=== PATIENT | male | born 1995 | race Caucasian/White ===

== ENCOUNTER 2016-05-06 15:45 | Emergency (ER) | payer OTHER ==
[2016-05-06 16:02] VITALS: BP 120/94; PULSE 76; RESP 17; TEMP 97.9; O2SAT 95
[2016-05-06] MEDS ORDERED: HYDROCOD/APAP 5/325 PREPACK#6 BTL TAKEHOME ONE (17:20)
--- NOTE | 2016-05-06 17:21 | EDPHY ---
H & P Time Seen by Provider: 05/06/16 16:31 HPI/ROS: CHIEF COMPLAINT: right shoulder pain HISTORY OF PRESENT ILLNESS: 20-year-old male presents emergency department complaining of right shoulder pain. Patient fell onto his shoulder while snowboarding today. No head strike, no loss of consciousness, no neck pain. Patient denies numbness or tingling in his arm, no previous injury to this shoulder, no elbow pain. Smoking Status: Never smoked Physical Exam: GEN: Awake, alert, oriented, no acute distress RESP: nl resp effort MSK: Right shoulder with decreased forward flexion and abduction due to pain, tenderness to palpation over AC joint, no obvious deformity, no swelling, no tenderness to clavicle. No C-spine tenderness to palpation, no skin tenting, no right elbow tenderness, 2+ radial pulses, sensation intact to light touch, normal deltoid sensation SKIN: No break in skin Constitutional: Initial Vital Signs Temperature (C) 36.6 C 05/06/16 15:59 Heart Rate 76 05/06/16 15:59 Respiratory Rate 17 05/06/16 15:59 Blood Pressure 120/94 H 05/06/16 15:59 O2 Sat (%) 95 05/06/16 15:59 O2 Delivery Mode Room Air Allergies/Adverse Reactions: No Known Allergies Allergy (Unverified 05/06/16 15:58) Home Medications: Medication Instructions Recorded NK [No Known Home Meds] 05/06/16 MDM/Departure - MDM Diagnostics: Right shoulder x-ray independently reviewed by bonnie CRUZ separation - Depart Disposition: Home, Routine, Self-Care Clinical Impression: Acromioclavicular separation, type 1 Qualifiers: Encounter type: initial encounter Laterality: right Qualifier Code: (S43.101A) Unspecified dislocation of right acromioclavicular joint, initial encounter Condition: Good Instructions: Acromioclavicular Separation (ED), Hydrocodone/Acetaminophen (By mouth) Additional Instructions: Wear sling for comfort, take 600 mg of ibuprofen every 8 hours with food for 3- 5 days, ice to your shoulder. Take [place] for severe pain. Follow up with orthopedist in the next 3-7 days for re-evaluation. Return to the emergency department for any worsening symptoms, new symptoms or concerns. Referrals: Curtis Rae MD [Medical Doctor] - As per Instructions (Orthopedist on-call)
--- NOTE | 2016-05-06 17:47 | DX ---
Right shoulder, 3 views History: Trauma, pain, recent dislocation. Finds: Right humeral head and neck appear intact without fracture or shoulder dislocation. Superior s ubluxation of distal clavicle approximately 4 mm may represent grade 1 AC joint separation. No defini te scapular fracture. Impression: 1. No definite fracture. 2. Suspected right AC joint separation.
== END 2016-05-06 17:31 | disposition home or self-care (01) ==
DX: S43.101A Unspecified dislocation of right acromioclavicular joint, initial encounter (principal); V00.311A Fall from snowboard, initial encounter; Y92.39 Other specified sports and athletic area as the place of occurrence of the external cause
CPT/HCPCS: A4565